=== PATIENT | female | born 1980 | race Caucasian/White ===

== ENCOUNTER 2016-06-27 10:55 | Day surgery (SDC) | payer OTHER ==
[~2016-06-27 10:55] MED LIST: ANCEF/STERILE WATER 2 GM/20 ML 20 ML IV SCH; HEPARIN SUB-Q NR; ceFAZolin 2 GM in NACL 0.9% 100 ML IV NR
--- NOTE | 2016-06-27 11:42 | Anesthesia Day of Surgery ---
Anesthesia Day of Surgery - Day of Surgery Patient Examined: Yes Patient H&P Reviewed: Yes Patient is NPO: Yes
--- NOTE | 2016-06-27 11:46 | Anesthesia Consultation ---
Anesthesia Consult and Med Hx Date of service: 06/27/16 - Airway Anesthetic Teeth Evaluation: Good ROM Head & Neck: Adequate Mental/Hyoid Distance: Adequate Mallampati Class: Class II Intubation Access Assessment: Probably Good - Pulmonary Exam CTA: Yes - Cardiac Exam Cardiac Exam: RRR - Pre-Operative Health Status ASA Pre-Surgery Classification: ASA2 Proposed Anesthetic Plan: General - Pre-Anesthesia Comment Pre-Anesthesia Comments: Nimo speaker - Pulmonary Hx Smoking: No Hx Asthma: No - Cardiovascular System Hx Hypertension: No Hx Heart Attack/AMI: No - Central Nervous System CVA: No Hx Psychiatric Problems: No - Gastrointestinal Hx Gastroesophageal Reflux Disease: No - Endocrine Hx Renal Disease: No Hx Liver Disease: No Hx Non-Insulin Dependent Diabetes: No - Other Systems Hx Alcohol Use: No Hx Cancer: No Hx Obesity: Yes - Additional Comments Anesthesia Medical History Comments: PIERRE
[2016-06-27] MEDS ORDERED: LACTATED RINGERS 1,000 ML IV SCH (12:00)
[2016-06-27] MEDS ORDERED: VERSED IV NR (12:00)
[2016-06-27] MEDS ORDERED: PEPCID PO NR (12:00)
[2016-06-27] MEDS ORDERED: ZEMURON IV ONE (12:07)
[2016-06-27] MEDS ORDERED: DIPRIVAN 10 MG/ML IV ONE (12:07)
[2016-06-27] MEDS ORDERED: XYLOCAINE MPF 2% ONE (12:07)
[2016-06-27] MEDS ORDERED: SUBLIMAZE ONE (12:07)
[2016-06-27 12:08] LABS: Hematocrit 38.9 % (30.3-42.9)
[2016-06-27] MEDS ORDERED: ZOFRAN ONE (12:08)
[2016-06-27] MEDS ORDERED: DECADRON ONE (12:08)
[2016-06-27] MEDS ORDERED: BLOXIVERZ ONE (13:09)
[2016-06-27] MEDS ORDERED: ROBINUL ONE ×2 (13:09)
[2016-06-27] MEDS ORDERED: NACL 0.9% IR ONE (13:33)
[2016-06-27] MEDS ORDERED: MARCAINE 0.5% INFILTRATI ONE (13:33)
--- NOTE | 2016-06-27 13:36 | Short Stay Summary ---
Short Stay Documentation Date of service: 06/27/16 - Allergies and Medications Current Medications: Allergies No Known Allergies Allergy (Verified 01/05/16 08:15) Home Medications Medication Instructions Recorded Confirmed Last Taken Type No Known Home Medications [No 06/26/16 06/26/16 Unknown History Reported Home Medications] Active Medications Famotidine (Pepcid) 20 mg PO PREOP NR Stop: 06/27/16 23:01 Last Admin: 06/27/16 12:01 Dose: 20 mg Heparin Sodium (Porcine) (Heparin) 5,000 unit SUB-Q PREOP NR Stop: 06/27/16 23:59 Last Admin: 06/27/16 12:05 Dose: 5,000 unit Cefazolin Sodium (Ancef/Sterile Water 2 Gm/20 Ml) 20 mls @ 80 mls/hr IV PREOP GUS Stop: 06/27/16 23:59 Lactated Ringer's (Lactated Ringers) 1,000 mls @ 100 mls/hr IV DIRECT GUS Last Admin: 06/27/16 12:00 Dose: 100 mls/hr Midazolam HCl (Versed) 2 mg IV PREOP NR Stop: 06/27/16 23:59 Last Admin: 06/27/16 12:09 Dose: 1 mg - Brief post op/procedure progress note Date of procedure: 06/27/16 Pre-op diagnosis: Biliary colic Post-op diagnosis: same Procedure: lap [place] Anesthesia: GETA, local Surgeon: MALIA SALVADOR [employer] Scientist: LARA DUTTA (Dr. William) Estimated blood loss: minimal Pathology: list (Gallbladder) Specimen disposition: to lab Condition: stable - Disposition Condition at discharge: Good Disposition: DISCHARGED TO HOME OR SELFCARE Short Stay Discharge Plan Activity: no restrictions Diet: regular Wound: remove dressing (06/29/16 and then may shower) Follow up with: PRIMARY CARE, [Primary Care Provider] - 7 Days MALIA SALVADOR MD [Staff Physician] - 7 Days Prescriptions: Promethazine [Phenergan TAB] 25 mg PO Q6HR PRN #10 tab PRN Reason: Nausea oxyCODONE /ACETAMINOPHEN [Percocet 5/325] 1 - 2 tab PO Q4HR PRN #30 tab PRN Reason: Pain
[2016-06-27] MEDS ORDERED: TORADOL ONE (13:48)
--- NOTE | 2016-06-27 14:08 | Post Anesthesia Evaluation ---
- Post Anesthesia Evaluation Patient Participated: Yes Airway Patent: Yes Stable Respiratory Function: Yes Nausea/Vomiting: No Temp > 96.8F: Yes Pain Manageable: Yes Adequeate Hydration: Yes Anesthesia Complications: No Block Receding Appropriately: Not Applicable Patient on Ventilator: No
[2016-06-27] MEDS ORDERED: ZOFRAN IV PRN (14:12)
[2016-06-27] MEDS: DILAUDID IV PRN ×4 (14:13→14:40)
--- NOTE | 2016-06-27 14:22 | Operative Report ---
PREOPERATIVE DIAGNOSIS: Biliary colic. POSTOPERATIVE DIAGNOSIS: Biliary colic. PROCEDURE: Laparoscopic cholecystectomy. SURGEON: Barak Day MD ASSISTANTS: 1. Tanmay Ricci MD 2. Dr. William. ANESTHESIA: General and local. ESTIMATED BLOOD LOSS: Minimal. SPECIMEN: Gallbladder. COMPLICATIONS: None. INDICATIONS: This is a 35-year-old female who has postprandial right upper quadrant abdominal pain with nausea and gallstones, presents now for laparoscopic cholecystectomy for her biliary colic. OPERATIVE COURSE: The patient was brought to the operating room, identified, and placed in the supine position. General anesthesia was achieved. Her abdomen was prepped and draped in usual manner. Prior to all incisions, the area was infiltrated with 0.25% Marcaine. We made a left lateral 5 mm incision and using Veress needle technique, the abdomen was insufflated to 15 mmHg pressure. A 5 mm trocar was inserted using a 30-degree 5-mm telescope. The trocars were placed under direct vision, which included a 10 mm epigastric port site and two 5 mm right lateral ports. We did not go through the umbilicus because she had a prior laparoscopic umbilical hernia repair and there was indeed a mesh in this location with some adhesions to the omentum to this area, but no bowel involved. We left these adhesions alone and proceeded to take out the gallbladder through the port . We grasped and elevated the gallbladder, tented up the triangle of Calot and then dissected out the cystic duct and artery. Once they were clearly identified going to the gallbladder, placed the clips on the duct proximally and distally, transected, clips in the artery proximally and distally and then transected. The gallbladder was then removed from the liver bed using electrocautery and delivered through the epigastric port site. The liver bed was seen to be hemostatic during the procedure, clips in good position. Ports removed under direct vision. No signs of bleeding from the port sites. We then evacuated the CO2 and closed all the incisions with a 4-0 Vicryl suture, Steri-Strips and bandage. JOB# [id number] BSM/NTS
[2016-06-27 15:23] VITALS: BP 124/58
[2016-06-27] MEDS ORDERED: PERCOCET 5/325 PO SCH (16:00)
== END 2016-06-27 15:50 | disposition home or self-care (01) ==
LOC: OR 10:55
PROVIDERS: ATTEND Surgery
DX: K80.64 Calculus of gallbladder and bile duct with chronic cholecystitis without obstruction (principal); E66.9 Obesity, unspecified; Z68.33 Body mass index [BMI] 33.0-33.9, adult; Z98.890 Other specified postprocedural states; Z98.51 Tubal ligation status
CPT/HCPCS: 36415; 47562; 81025; 85014; 85018; 88304; J0690; J1100; J1170; J1644; J1885; J2250; J2405; J2704; J2710; J3010; J7120

== ENCOUNTER 2019-04-02 10:16 | Outpatient (CLI) | payer OTHER ==
[2019-04-02 11:12] LABS: Basophils % (Auto) 0.8 % (0.0-1.8); Eosinophils # (Auto) 0.2 K/mm3 (0.0-0.4); Eosinophils % (Auto) 3.1 % (0.0-4.3); Hematocrit 37.2 % (30.3-42.9); Hemoglobin 12.7 gm/dl (10.1-14.3); Lymphocytes # (Auto) 2.4 K/mm3 (1.2-5.4); Lymphocytes % (Auto) 39.8 % (13.4-35.0); Mean Corpuscular HGB Conc 34 % (30-34); Mean Corpuscular Volume 89 fl (79-97); Monocytes # (Auto) 0.3 K/mm3 (0.0-0.8); Monocytes % (Auto) 5.3 % (0.0-7.3); Platelet Count 257 K/mm3 (140-440); Red Blood Count 4.18 M/mm3 (3.65-5.03); Red Cell Distribution Width 12.6 % (13.2-15.2)
[2019-04-02 11:16] LABS: Bilirubin,Urine NEG (Negative); Blood,Urine LG (Negative); Color,Urine Yellow (Yellow); Mucus,Urine FEW /HPF; Urobilinogen,Urine < 2.0 mg/dL (<2.0)
[2019-04-02 11:21] LABS: Alanine Aminotransferase 25 units/L (7-56); Albumin 4.7 g/dL (3.9-5); BUN/Creatinine Ratio 28; Blood Urea Nitrogen 11 mg/dL (7-17); Calcium 9.1 mg/dL (8.4-10.2); Chol/HDL Ratio 3.62 %; HDL Cholesterol 53 mg/dL (40-59); Hemolysis Index 3; LDL Cholesterol,Direct 125 mg/dL (50-130)
[2019-04-06 13:21] LABS: Vitamin D, 25-OH, D2 <4 ng/mL
== END 2019-04-02 10:17 | disposition home or self-care (01) ==
LOC: LAB 10:16
PROVIDERS: ATTEND Internal Medicine
DX: Z13.1 Encounter for screening for diabetes mellitus (principal); Z13.220 Encounter for screening for lipoid disorders; N39.0 Urinary tract infection, site not specified; Z00.00 Encounter for general adult medical examination without abnormal findings; Z98.51 Tubal ligation status
CPT/HCPCS: 36415; 80053; 80061; 81001; 82306; 82607; 83036; 84443; 85025

== ENCOUNTER 2019-04-18 07:02 | Outpatient (CLI) | payer OTHER ==
--- NOTE | 2019-04-18 07:57 | Ultrasound Report ---
Pelvic ultrasound. 04/18/2019. HISTORY: Pelvic pain. FINDINGS: Bladder is moderately distended with urine. Ureteral jets are seen bilaterally. Negative fo r pelvic mass or fluid. IMPRESSION: Unremarkable pelvic ultrasound. Signer Name: Musa Cartagena MD Signed: 04/18/2019 7:52 AM Workstation Name: [id number]
== END 2019-04-18 07:03 | disposition home or self-care (01) ==
LOC: US 07:02
PROVIDERS: ATTEND Internal Medicine
DX: R10.9 Unspecified abdominal pain (principal)
CPT/HCPCS: 76857

== ENCOUNTER 2019-07-18 10:45 | Outpatient (CLI) | payer OTHER ==
[2019-07-18 13:09] LABS: Bacteria,Urine 1+ /HPF (Negative); Bilirubin,Urine NEG (Negative); Blood,Urine LG (Negative); Color,Urine Yellow (Yellow); Mucus,Urine 1+ /HPF; Urobilinogen,Urine < 2.0 mg/dL (<2.0)
[2019-07-18 13:16] LABS: Creatinine,Urine 154.6 mg/dL (0.1-20.0); Microalbumin/Creatinine Ratio 135.8 ug/mg
== END 2019-07-18 10:46 | disposition home or self-care (01) ==
LOC: LAB 10:45
PROVIDERS: ATTEND Internal Medicine
DX: R10.9 Unspecified abdominal pain (principal)
CPT/HCPCS: 36415; 81001; 82043; 83036